=== PATIENT | male | born 1975 | race Hispanic/Latino ===

== ENCOUNTER 2017-08-30 01:17 | Emergency (ER) | payer OTHER, BC ==
[2017-08-30 01:18] VITALS: BMI 38.7
[2017-08-30 01:33] VITALS: TEMP 98.1
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
[2017-08-30 04:11] VITALS: BP 145/90; PULSE 90; RESP 16; O2SAT 97
== END 2017-08-30 04:10 | disposition home or self-care (01) ==
LOC: ED 01:17
DX: S09.90XA Unspecified injury of head, initial encounter (principal); V43.52XA Car driver injured in collision with other type car in traffic accident, initial encounter; Y92.410 Unspecified street and highway as the place of occurrence of the external cause

== ENCOUNTER 2018-02-14 19:43 | Emergency (ER) | payer OTHER, BC ==
[2018-02-14 19:43] VITALS: BMI 38.7
[2018-02-14] MEDS ORDERED: Sodium Chloride 0.9% 1,000 ML IV SCH (20:15)
[2018-02-14 20:53] LABS: ALB/GLOB RATIO 1.2 (1.1-1.8); ALBUMIN 4.5 g/dL (3.0-4.8); ALT/SGPT 22 U/L (7-56); AST/SGOT 20 U/L (17-59); BLOOD UREA NITROGEN 16 mg/dL (7-21); CALCIUM 9.5 mg/dL (8.4-10.5); GFR AFRICAN-AMERICAN > 60; GFR NON-AFRICAN AMERICAN > 60
[2018-02-14 20:54] LABS: BASO # 0.02 K/mm3 (0.0-2.0); BASO % 0.3 % (0.0-3.0); EOS # 0.1 (0.0-0.7); EOS % 1.6 % (1.5-5.0); GRAN # 4.07 (1.4-6.5); GRAN % 63.5 % (50.0-68.0); HEMOGLOBIN 13.4 g/dL (14.0-18.0); LYMPH # 1.7 (1.2-3.4); LYMPH % 26.6 % (22.0-35.0); MEAN CELL VOLUME 85.3 fl (80.0-105.0); MEAN CORPUSCULAR HEMOGLOBIN 28.9 pg (25.0-35.0); MEAN CORPUSCULAR HGB CONC 33.9 g/dl (31.0-37.0); MEAN PLATELET VOLUME 9.1 fl (7.0-11.0); MONO # 0.5 (0.1-0.6); RBC 4.63 10^6/uL (3.5-6.1); RED CELL DISTRIBUTION WIDTH 12.2 % (11.5-14.5); WHITE BLOOD COUNT 6.4 10^3/ul (4.5-11.0)
[2018-02-14 21:04] LABS: TROPONIN I < 0.01 ng/mL
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
[2018-02-14 22:32] VITALS: O2SAT 100
[2018-02-14 23:04] LABS: BARBITURATES, UR NEGATIVE (NEGATIVE); OPIATES, UR POSITIVE (NEGATIVE); PHENCYCLIDINE, UR NEGATIVE (NEGATIVE)
[2018-02-14 23:05] LABS: BENZODIAZEPINES, UR POSITIVE (NEGATIVE)
[2018-02-14] MEDS ORDERED: Naloxone 0.4 mg/ml Inj (Adult) IVP STA (23:07)
[2018-02-14 23:49] VITALS: BP 168/85; PULSE 98; RESP 18; TEMP 98.2
--- NOTE | 2018-02-15 08:54 | RAD ---
HISTORY: ams COMPARISON: 09/28/2016 FINDINGS: LUNGS: No active pulmonary disease. PLEURA: No significant pleural effusion identified, no pneumothorax apparent. CARDIOVASCULAR: Normal. OSSEOUS STRUCTURES: No significant abnormalities. VISUALIZED UPPER ABDOMEN: Normal. OTHER FINDINGS: None. IMPRESSION: No active disease.
--- NOTE | 2018-02-15 18:01 | CARD ---
APPROVED REPORT EKG Measurement Heart [id number] <Conclusion> Sinus tachycardia Moderate voltage criteria for LVH, may be normal variant Borderline ECG
== END 2018-02-14 23:49 ==
LOC: ED 19:43
DX: F19.10 Other psychoactive substance abuse, uncomplicated (principal); Z65.3 Problems related to other legal circumstances; I10 Essential (primary) hypertension
CPT/HCPCS: 71045; 80053; 80320; 80324; 80345; 80346; 80349; 80353; 80358; 80361; 83992; 84484; 85025; 93005; 96374; 99285; J2310; J7040